=== PATIENT | male | born 1960 | race Caucasian/White ===

== ENCOUNTER 2016-11-20 11:49 | Emergency (ER) | payer OTHER ==
[2016-11-20 12:18] LABS: BASOPHILS 0.3 % (0.0-2.0); EOSINOPHILS 1.8 % (0-7); HEMATOCRIT 47.9 % (42.0-54.0); HEMOGLOBIN 16.9 g/dL (13.5-17.5); IMMATURE GRANULOCYTES 0.4 % (0-5); MCH 31.9 pg (26.0-34.0); MCHC 35.3 g/dL (31.0-37.0); MCV 90.5 fL (80.0-100.0); MEAN PLATELET VOLUME 11.2 fL (7.4-10.4); MONOCYTES 6.2 % (2-11); NEUTROPHILS 75.3 % (40-80); PLATELET COUNT 162 10x3/uL (130-400); RBC 5.29 10x6/uL (4.20-6.10); RDW 12.7 % (11.5-14.5); WBC 11.3 10x3/uL (4.8-10.8)
[2016-11-20 12:42] LABS: ALBUMIN 3.6 g/dL (3.4-5.0); ALKALINE PHOSPHATASE 90 U/L (46-116); ALT (SGPT) 19 U/L (10-68); BILIRUBIN - TOTAL 0.41 mg/dL (0.2-1.3); CALC OSMOLALITY 290 mosm/kg (275-300); CALCIUM 8.8 mg/dL (8.5-10.1); CARBON DIOXIDE 23.5 mmol/L (21.0-32.0); CHLORIDE - SERUM 104 mmol/L (98-107); CREATININE - SERUM 0.9 mg/dL (0.6-1.3); GLUCOSE 389 mg/dL (74-106); POTASSIUM - SERUM 4.3 mmol/L (3.5-5.1); SODIUM 138 mmol/L (136-145); UREA NITROGEN 9 mg/dL (7-18); eGFR NON AFRICAN AMERICAN > 90 mL/min (90-120)
[2016-11-20 12:43] LABS: CHOL - HDL RATIO 5.7 ratio (2.3-4.9); CHOLESTEROL, TOTAL 164 mg/dL (0-200); CKMB 0.5 U/L (0.0-3.6); CREATINE KINASE 37 UL (21-232); HDL CHOLESTEROL 29 mg/dL (32-96); LDL CHOLESTEROL 91 mg/dL (0-100); LDL-HDL RATIO 3.1 ratio (1.5-3.5); TRIGLYCERIDE 224 mg/dL (30-200)
[2016-11-20 12:44] LABS: TROPONIN-I < 0.017 ng/mL (0.000-0.060)
== END 2016-11-20 17:38 | disposition home or self-care (01) ==
LOC: D.ER 11:49
PROVIDERS: Emergency Medicine
DX: R07.9 Chest pain, unspecified (principal); E11.9 Type 2 diabetes mellitus without complications; E03.9 Hypothyroidism, unspecified